=== PATIENT | female | born 1965 | race Caucasian/White ===

== ENCOUNTER 2021-04-02 06:53 | Day surgery (SDC) | payer BC ==
[~2021-04-02] VITALS: Ht 180.3 cm; Wt 124.0 kg
[~2021-04-02 06:53] MED LIST: CHOL100013 PO; HYDROmorphone 2 MG/ML INJ. IVP PRN; LISI20TA18 PO; MEDR10TA PO; MORPHINE SULFATE 2 MG/ML INJ. IVP PRN; PROCHLORPERAZINE 10 MG/2 ML VIAL. IVP PRN; fentaNYL PF VIAL 100 MCG/2 ML VIAL IVP PRN
[2021-04-02] MEDS ORDERED: PROPOFOL 10 MG/ML (20ML) VIAL. IV ONE (07:39)
[2021-04-02] MEDS: IV RINGERS,LACTATED 1000ML 1,000 ML IV SCH ×2 (07:39→10:19)
[2021-04-02] MEDS ORDERED: ONDANSETRON PF 4 MG/2 ML VIAL. ONE (07:39)
[2021-04-02] MEDS ORDERED: DEXAMETHASONE SOD PHOS 4 MG/ML VIAL ONE (07:39)
[2021-04-02] MEDS ORDERED: fentaNYL PF VIAL 100 MCG/2 ML VIAL ONE (08:50)
--- NOTE | 2021-04-02 09:55 | PDOC4 ---
BRIEF OPERATIVE NOTE Date: Apr 02, 2021 Pre-Op Diagnosis PMB, endometrial thickening, anemia Post-Op Diagnosis same, abundant tissue Procedure Performed h/s D&C with myosure Surgeon Dr. Borden Anesthesiologist Dr. Rapp Anesthesia Type: General Blood Loss 20cc IV Fluid see anesthesia records Urine Output 25cc straight cath prior to procedure Specimens Obtained endometrial currettings Findings uterus that sounded to 7-7.5; already dilated to the 6mm hegar, abundant tissue everywhere (entire cavity filled with fluffy white and pink tissue) cut with myosure reach 12 min and 8 sec and still some tissue but much much improved and tissue sock overflowing Complications none Operative Note [id number] TRU BORDEN MD Apr 02, 2021 09:55
[2021-04-02] MEDS ORDERED: 0.9 % SODIUM CHLORIDE 10 ML DISP.SYRIN. IV PRN (10:00)
[2021-04-02] MEDS ORDERED: diphenhydrAMINE HCL 25 MG CAPSULE PO PRN (10:00)
[2021-04-02] MEDS ORDERED: diphenhydrAMINE 50 MG/ML VIAL IV PRN (10:00)
[2021-04-02] MEDS ORDERED: MAG HYDROX/ALUMINUM HYD/SIMETH 30 ML ORAL.SUSP PO PRN (10:00)
[2021-04-02] MEDS ORDERED: SIMETHICONE 80 MG TAB.CHEW PO PRN (10:00)
[2021-04-02] MEDS ORDERED: HYDROcodone/APAP 5/325MG 1 TAB TABLET PO PRN (10:00)
[2021-04-02] MEDS ORDERED: CALCIUM CARBONATE 500 MG TAB.CHEW PO PRN (10:00)
[2021-04-02] MEDS ORDERED: NALOXONE 0.4 MG/ML VIAL. IV PRN (10:00)
--- NOTE | 2021-04-02 10:09 | OP ---
DATE OF SURGERY: 04/02/2021 PREOPERATIVE DIAGNOSES: Postmenopausal bleeding, endometrial thickening on sonogram and severe anemia. POSTOPERATIVE DIAGNOSES: Postmenopausal bleeding, endometrial thickening on sonogram, severe anemia and abundant tissue. PROCEDURE: Hysteroscopy, D and C with MyoSure. SURGEON: Magali Harmon MD WELLNESS SPA MANAGER: OR personnel. ANESTHESIOLOGIST: Reginaldo Rapp MD ANESTHESIA: General. BLOOD LOSS: 20 mL. URINE OUTPUT: 25 with a straight cath prior to procedure. INTRAVENOUS FLUIDS: Please see anesthesia records. SPECIMENS: Endometrial tissue, endometrial curettings. FINDINGS: She had a uterus that sounded to 7-7.5 upon initial entry. She was already open and dilated and bleeding. I easily passed the 5/6 Hegar without any dilatation needed. Upon getting in with the hysteroscope, abundant tissue everywhere, like the entire cavity was filled with white and pink fluffy tissue. Also, the cut time with the MyoSure was 12 minutes and 8 seconds and while it was much, much improved and we could see a cavity, I do not think all of it was completely done. COMPLICATIONS: None. DESCRIPTION OF PROCEDURE: This patient was taken to the operating room where general anesthesia was placed. The patient was placed in dorsal lithotomy position in [facility]. The patient's vagina was prepped and draped in the normal sterile fashion and a straight cath urine was done prior to my arrival. Upon my arrival, a timeout was performed. Once everyone agreed on the patient, the site, the procedure, the procedure was initiated. A weighted speculum was placed in the patient's vagina. Single-tooth tenaculum was used to grasp the anterior lip of the cervix. She was already open and dilated, so I passed a 4 Hegar, which fit in, then the 5/6 as well. She did not have to be dilated. She sounded to 7-7.5 cm. Upon initial entry, all I could see was abundant pink and white fluffy tissue everywhere, not just in the fundus, not just anteriorly, but just the entire cavity was completely filled with tissue. So, at this point, the MyoSure Reach was obtained to do a curetting. The weighted speculum fell out and ended up breaking the bag, so we did not get any kind of fluid deficit ins and outs because it was leaking, put a hole in the bag all over the floor, but we got the reach and performed a curetting. Abundant tissue was obtained to the point where the stalk was overflowing. We cut for over 12 minutes. I can actually see a cavity now and the fundus and cleaned up probably 85-90% of it. There is still some in the corners, but I did not want to over curette her and get to the corners where there may be some scarring, so once we had to suck the bag out, we had gone that much fluid, I went ahead and decided to end the procedure. All sponge and lap counts were correct x 2 by OR personnel. The patient was awakened from anesthesia and has been brought to recovery room in stable condition. ALY DR: Melissa TID: [id number]
[2021-04-02] MEDS ORDERED: KETOROLAC 30 MG/ML VIAL. IVP ONE (10:15)
[2021-04-02 10:45] VITALS: BP 187/78
--- NOTE | 2021-04-07 16:13 | PATHOLOGY ---
[facility] Accession Number: [id number] . 01 Material submitted: . endometrium - ENDOMETRIAL CURETTINGS . 01 Clinical history: . MENORRHAGIA MYOSURE, D/C . 02 Diagnosis: Endometrial curettings: - ENDOMETRIOID ADENOCARCINOMA, FIGO GRADE 2, WITH SQUAMOUS METAPLASIA. SEE COMMENT. (JPM:oracle dba/db; 04/06/2021) MBR 04/07/2021 0950 Local . 02 Comment: The entire specimen is submitted for histologic evaluation. Microscopic sections reveal a FIGO grade 2 endometrioid adenocarcinoma. The tumor shows evidence of squamous metaplasia. The case is also examined by Dr. Eldridge, who concurs with the diagnosis on 04/07/21. The results are reported to Dr. Magali Harmon on 04/07/21 at 11:30 AM. (JPM/db; 04/07/2021) . 02 Electronically signed: . John Ray MD, Pathologist NPI- [id number] . 01 Gross description: . The specimen is received in formalin, labeled "Kirk, Shoshana, endometrial curettings" and consists of multiple pale xavier and focally hemorrhagic soft irregular tissues aggregating 10.5 x 7.5 x 0.4 cm. The specimen is filtered and submitted in toto in A1-A17. (NIKOLSKI; 04/03/2021) DKA/DKA 04/03/2021 1250 Local . 02 Pathologist provided ICD-10: C54.1 . 02 CPT . 770137 Specimen Comment: A courtesy copy of this report has been sent to [phone] Specimen Comment: Report sent to / DR ROSAS Specimen Comment: A duplicate report has been generated due to demographic updates. Performed at: 01 [facility] [address] [facility] [address], [place] [id number] MD Asa Samuel MD Phone: [phone] Performed at: 02 [facility] [address] [place], [place] [id number] MD John Ray MD Phone: [phone]
== END 2021-04-02 11:10 | disposition home or self-care (01) ==
LOC: SURG 06:53
PROVIDERS: ATTEND Obstetrics & Gynecology
DX: N95.0 Postmenopausal bleeding (principal); R93.89 Abnormal findings on diagnostic imaging of other specified body structures; D64.9 Anemia, unspecified; C54.1 Malignant neoplasm of endometrium; I10 Essential (primary) hypertension; E11.9 Type 2 diabetes mellitus without complications; Z79.899 Other long term (current) drug therapy; Z98.890 Other specified postprocedural states; Z88.8 Allergy status to other drugs, medicaments and biological substances
CPT/HCPCS: 58558; 81025; 88305; A4930; J1100; J1885; J2405; J2704; J3010